=== PATIENT | female | born 1980 | race Caucasian/White ===

== ENCOUNTER → 2018-05-26 09:02 | Outpatient (CLI) | payer OTHER, SELFPAY ==
--- NOTE | 2018-05-26 | DI.MRI.S_ITS ---
PROCEDURE: MR LUMBAR SPINE WO CON INDICATIONS: Paresthesia of skin TECHNIQUE: Noncontrast sagittal T1 spin echo and T2 fast echo, sagittal STIR, axial T1 and T2 fast spin echo through the lumbar spine. In cases with scoliosis, additional coronal T2 fast spin echo may be performed. COMPARISON: None. FINDINGS: Image quality: Excellent. Alignment and Curvature: Incidentally noted hypoplastic S1-S2 disc space. Please see the montage image for clarification of spinal segmental level numbering scheme used in this report, and prior to any spinal intervention. There is normal bony alignment. Bone Marrow: Marrow is of normal overall signal. No acute vertebral body compression fractures. Spinal Cord: Conus medullaris terminates at the L1 level. Visualized cord demonstrates normal signal and size. Paraspinous Soft Tissues: No paravertebral masses. L1-L2: Normal appearance. L2-L3: Normal appearance. L3-L4: Normal appearance. L4-L5: Normal appearance. L5-S1: Posterior annular fissure. Broad-based posterior disc bulge and bilateral facet arthropathy. Minimal narrowing of the left lateral recess. The right lateral recess appears grossly patent. No foraminal stenoses. IMPRESSION: Minimal left L5-S1 subarticular narrowing although subtle MR appearance. Please correlate with clinical exam findings. Elsewhere, no canal or foraminal stenosis. Dictated by: Nguyễn Lambert M.D. on 05/26/2018 at 10:38 Approved by: Nguyễn Lambert M.D. on 05/26/2018 at 10:45
== END ==
PROVIDERS: Visit Provider Physical Medicine & Rehabilitation Pain Medicine
DX: R20.2 Paresthesia of skin (principal); M51.27 Other intervertebral disc displacement, lumbosacral region; M47.817 Spondylosis without myelopathy or radiculopathy, lumbosacral region
CPT/HCPCS: 72148

== ENCOUNTER 2018-12-02 06:58 | Day surgery (SDC) | payer OTHER, SELFPAY ==
[2018-12-02] VITALS (8 sets, daily range): BP systolic 98–115; BP diastolic 54–74; PULSE 59–83; RESP 12–16; TEMP 36.2–37.1; O2SAT 94–100; BMI 24.6
[2018-12-02] MEDS: SODIUM CHLORIDE 0.9% 1,000 ML 42 ML IV (07:31)
[2018-12-02] MEDS: fentaNYL 250 MCG/5 ML INJ IV (08:32)
--- NOTE | 2018-12-02 08:35 | PM.HP.1 ---
History of Present Illness History of Present Illness Date Patient Seen: 12/02/18 Time Patient Seen: 08:35 Chief complaint: [id number] EGD W/BX Narrative: Reflux dysphagia and upper abdominal discomfort Patient History Medical History (Updated 12/02/18 @ 07:30 by Cris Ruiz RN) Abdominal pain (Acute) Back pain (Acute) Fibromyalgia (Acute) Gastric reflux (Acute) Seasonal allergies (Acute) Shoulder pain (Acute) TMJ (dislocation of temporomandibular joint) (Acute) Surgical History (Updated 12/02/18 @ 07:20 by Cris Ruiz RN) History of tonsillectomy (Acute) Social History household members: other Family & Social History Social History: household members other Meds Home Medications and Allergies Home Medications Medication Instructions Recorded Confirmed Type norgestrel-ethinyl estradiol 1 tab PO DAILY 12/02/18 12/02/18 History [Low-Ogestrel (28)] valacyclovir [Valtrex] 500 mg PO DAILY 12/02/18 12/02/18 History Allergies Allergy/AdvReac Type Severity Reaction Status Date / Time duloxetine [From Cymbalta] AdvReac Intermediate Constipatio Verified 12/02/18 07:21 n Exam Vital Signs (past 8 hours): - 12/02/18 07:19 Temperature 97.9 F Pulse Rate 70 Respiratory Rate 12 Blood Pressure 115/74 Pulse Oximetry 100 Oxygen Delivery Method Room Air Narrative Exam Narrative: Oropharynx free of lesions Chest clear to auscultation percussion Cardiac exam reveals no S3 or murmur Assessment & Plan Assessment & Plan narrative: Dysphagia upper abdominal discomfort GE reflux. Need for upper endoscopy. Risks, benefits, alternatives have been explained.
--- NOTE | 2018-12-02 08:36 | PM.OP.ENDO ---
Operative Date/Time/Diagnoses Date of procedure: 12/02/18 Time of procedure: 08:36 Pre-op diagnosis: See indication and findings Procedure & Clinicians Study performed: EGD Same procedure as scheduled: Yes Indications: Dysphagia and abdominal discomfort GE reflux Surgeon: Eric Sunshine Procedure Notes Procedure in detail: After informed consent was obtained the patient was placed in left lateral decubitus position. The video upper scope was placed into the oropharynx and with the patient's help swelled into the esophagus. The esophagus,, and duodenum were carefully examined. On withdrawal, retroflexed view the GE junction was performed. The scope was removed. The patient tolerated procedure well. Blood loss none Complications none Sedation Total sedation time 16 minutes Versed 8 mg fentanyl 100 micro g IV titration Findings 1. Normal esophagus biopsies taken to rule out eosinophilic esophagitis 2. Normal stomach biopsies taken in the antrum and body to rule out Helicobacter 3. Normal duodenal bulb and sweep biopsies taken to rule out celiac Will be in touch regarding biopsies and about her lower abdominal symptoms which seemed to only of mildly gotten better now that her constipation has resolved.
[2018-12-02] MEDS: MIDAZOLAM 5 MG/5 ML VIAL IV (08:40)
== END 2018-12-02 10:10 | disposition home or self-care (01) ==
PROVIDERS: Visit Provider Internal Medicine Gastroenterology
PROC: 0DJ08ZZ Inspection of Upper Intestinal Tract, Via Natural or Artificial Opening Endoscopic (ICD-10-PCS; CPT 43235; principal; 2018-12-02 08:30)
DX: K21.9 Gastro-esophageal reflux disease without esophagitis (principal); R13.10 Dysphagia, unspecified; M79.7 Fibromyalgia
CPT/HCPCS: 43239; 88305; J2250; J3010

== ENCOUNTER → 2019-01-29 12:15 | Outpatient (CLI) | payer OTHER, SELFPAY ==
[2019-02-01 09:30] LABS: Almond Allergy Class 0; Almond Allergy IgE < 0.10 kU/L (< 0.10); Cashew nut Allergy Class 0; Cashew nut Allergy IgE < 0.10 kU/L (< 0.10); Codfish Allergy Class 0; Codfish Allergy IgE < 0.10 kU/L (< 0.10); Cow Milk Allergy Class 0; Cow Milk Allergy IgE < 0.10 kU/L (< 0.10); Egg Whites IgE < 0.10 kU/L (< 0.10); Hazelnut Allergy Class 0; Hazelnut Allergy IgE < 0.10 kU/L (< 0.10); Peanut Allergy Class 0; Peanut Allergy IgE < 0.10 kU/L (< 0.10); Salmon Allergy Class 0; Salmon Allergy IgE < 0.10 kU/L (< 0.10); Scallop Allergy IgE 0.11 kU/L (< 0.10); Sesame seed Allergy Class 0; Sesame seed Allergy IgE < 0.10 kU/L (< 0.10); Shrimp Allergy Class 2; Shrimp Allergy IgE 1.47 kU/L (< 0.10); Soybean Allergy Class 0; Soybean Allergy IgE < 0.10 kU/L (< 0.10); Tuna Allergy Class 0; Tuna Allergy IgE < 0.10 kU/L (< 0.10); Walnut Allergy Class 0; Walnut Allery IgE < 0.10 kU/L (< 0.10); Wheat Allergy Class 0; Wheat Allergy IgE < 0.10 kU/L (< 0.10)
== END ==
PROVIDERS: Visit Provider Internal Medicine Gastroenterology
DX: R10.32 Left lower quadrant pain (principal); Z91.018 Allergy to other foods; R14.0 Abdominal distension (gaseous)
CPT/HCPCS: 36415; 86003